=== PATIENT | female | born 1970 | race Caucasian/White ===

== ENCOUNTER → 2025-02-06 | Outpatient (CLI) | payer OTHER ==
--- NOTE | 2025-02-06 16:34 | US ---
EXAMINATION TYPE: US extremity nonvasculr ltd RT DATE OF EXAM: 02/06/2025 COMPARISON: NONE CLINICAL INDICATION: Female, 54 years old with history of M25.451 EFFUSION, RIGHT HIP; Pt fell on ice in July, palpable area/ bruise ever since which has been stable in size TECHNIQUE: several garrett scale and color doppler images taken at the anterior hip joint and patients palpable area of concern. FINDINGS: No evidence of hip effusion at the anterior right hip joint. Patients palpable area corresponds to a 3.4 x 1.0 x 2.7 cm irregular hypoechoic region within the sub cutaneous tissue layer extending to the underlying muscle fascia to the skin. This area is avascular This area may represent a ?Rhodes-Lavall?e lesion? which could be followed up with a short interval u ltrasound for resolution or MRI to better characterize this area. IMPRESSION: As above [facility], , 02/06/2025 4:31 PM
== END | disposition home or self-care (01) ==
LOC: RADUSWWP 15:21
PROVIDERS: ATTEND Family Medicine
DX: M25.451 Effusion, right hip (principal)